=== PATIENT | female | born 1985 | race Caucasian/White ===

== ENCOUNTER → 2023-08-03 | Outpatient (CLI) | payer OTHER ==
--- NOTE | 2023-08-03 07:51 | MM ---
Reason for Exam: Clinical finding. Baseline mammogram. Patient History: Menarche at age 14. First Full-Term at age 19. Last menstrual period: 07/05/2023 Risk Values: Jesica 5 year model risk: 0.4%. NCI Lifetime model risk: 8.3%. Prior Study Comparison: Patient's first Mammogram. No prior studies available for comparison. Tissue Density: There are scattered fibroglandular densities. Findings: Analyzed By CAD. Somewhat circumscribed mass in the medial lower aspect of the right breast 2.7 cm from the nipple is the center of this mass measuring 45 x 30 mm. The left breast demonstrates no evidence for mass, architectural distortion or calcification. Overall Assessment: Incomplete: need additional imaging evaluation, BI-RAD 0 Management: Diagnostic Breast Ultrasound of the right breast. Results were given to the patient verbally at the time of exam. Patient should continue monthly self-breast exams. A clinical breast exam by your physician is recommended on an annual basis. This exam should not preclude additional follow-up of suspicious palpable abnormalities. Note on Jesica scores and lifetime risk: 1. A Jesica score greater than 3% is considered moderate risk. If this is the case, consider specialist referral to assess eligibility for a risk reducing agent. 2. If overall lifetime risk for the development of breast cancer is 20% or higher, the patient may qualify for future screening with alternating mammogram and breast MRI. Electronically signed and approved by: Conner Salas DO
--- NOTE | 2023-08-03 08:19 | USB ---
Reason for Exam: Clinical finding. Patient History: Menarche at age 14. First Full-Term at age 19. Risk Values: Jesica 5 year model risk: 0.4%. NCI Lifetime model risk: 8.3%. Technique: Method: Targeted. Findings: The area of palpable concern of the right breast, the medial section of the breast of the right breast, the axilla of the right breast and the retroareolar of the right breast were scanned. Technique utilized:US breast limited RT Image; Ultrasound imaging of: Area of concern, retroareolar region and axilla. This is suspected abscess within the right breast 3:00 1 cm from the nipple measuring up to 4.3 x 4.7 x 3.7 cm. Indeterminate left axillary lymph node some eccentric wall thickening up to 5 mm. Overall Assessment: Benign, BI-RAD 2 Management: Aspiration of the right breast. A clinical breast exam by your physician is recommended on an annual basis and results should be correlated with mammographic findings. This exam should not preclude additional follow-up of suspicious palpable abnormalities. Results were given to the patient verbally at the time of exam. Electronically signed and approved by: Conner Salas DO
== END | disposition home or self-care (01) ==
LOC: RADMAMWWP 07:12
PROVIDERS: ATTEND Family Medicine
DX: N63.13 Unspecified lump in the right breast, lower outer quadrant (principal)
CPT/HCPCS: 77066; 76642; G0279; 77062